=== PATIENT | male | born 1950 | race American Indian/Alaskan Native ===

== ENCOUNTER 2021-09-23 01:13 | Emergency (ER) | payer MEDICARE ==
[2021-09-23 01:21] VITALS: BP 204/80
== END 2021-09-23 02:00 | disposition left against medical advice (07) ==
LOC: ED 01:13
DX: R52 Pain, unspecified (principal); Z53.21 Procedure and treatment not carried out due to patient leaving prior to being seen by health care provider

== ENCOUNTER 2021-10-11 02:14 | Emergency (ER) | payer MEDICARE ==
[2021-10-11] MEDS ORDERED: ASPIRIN 325 MG TAB PO ONE (03:57)
--- NOTE | 2021-10-11 04:26 | XRay Report ---
CHEST 2 VIEWS INDICATION / CLINICAL INFORMATION: chestpain. COMPARISON: Chest x-ray 04/22/2018 FINDINGS: SUPPORT DEVICES: None. HEART / MEDIASTINUM: Heart size and mediastinal contour appear within normal limits. Mild ectasia of the thoracic aorta is stable. LUNGS / PLEURA: No significant pulmonary or pleural abnormality. No pneumothorax. BONES: No significant osseous abnormality. ADDITIONAL FINDINGS: No significant additional findings. IMPRESSION: 1. No active cardiopulmonary disease. Signer Name: Maximino Croft II, MD Signed: 10/11/2021 4:22 AM Workstation Name: [id number]
[2021-10-11] MEDS ORDERED: MORPHINE 4 MG/1 ML INJ IV ONE (05:01)
[2021-10-11 05:59] VITALS: BP 130/68
[2021-10-11] MEDS ORDERED: ONDANSETRON 4 MG/2 ML INJ IV ONE (06:18)
[2021-10-11] MEDS ORDERED: fentaNYL 100 MCG/2 ML INJ IV ONE (06:18)
--- NOTE | 2021-10-11 06:23 | Emergency Department Report ---
HPI - General Chief Complaint: Chest Pain Time Seen by Provider: 10/11/21 04:52 - HPI HPI: Room 7 Patient is a 71-year-old male present with chief complaint of body aches. Patient states for the past 3 days he has had pain throughout his "whole body." Patient states he has had this pain in the past from his pancreatic CA, and has it a couple times a month. The patient states he has prescription for extended release morphine and oxycodone but has not filled them yet. Patient denies any other complaints. Patient denies history of fever. Of note the patient was diagnosed with COVID recently and he has never been vaccinated ED Past Medical Hx - Past Medical History Previous Medical History?: Yes Hx Hypertension: Yes Hx Heart Attack/AMI: Yes (x3) Hx of Cancer: Yes (pancreatic) Additional medical history: Pancreatic Cancer, Liver Cancer (last treatment "an injection" occurred 2016). Denies chemo or radiation. Patient states he refused surgery - Surgical History Past Surgical History?: Yes Additional Surgical History: Left Knee surgery, Jaw surgery - Family History Family history: no significant - Social History Smoking Status: Current Every Day Smoker (1/2 pack/day) Substance Use Type: Alcohol (Occasional), Marijuana - Medications Home Medications: Home Medications Medication Instructions Recorded Confirmed Last Taken Type Albuterol Mdi (or & Nicu Only) 1 puff IH Q4-6H PRN #1 inha 04/22/18 Unknown Rx [ProAir HFA Inhaler] Amoxicillin 500 mg PO QID #40 capsule 04/22/18 Unknown Rx Benzonatate [Tessalon Perles] 100 mg PO Q8HR #20 capsule 04/22/18 Unknown Rx predniSONE [Deltasone] 20 mg PO QDAY #5 tab 04/22/18 Unknown Rx ED Review of Systems ROS: Stated complaint: CHEST PAIN/SHWETHA Other details as noted in HPI Constitutional: denies: fever Eyes: denies: eye pain ENT: denies: throat pain Respiratory: no symptoms reported Cardiovascular: denies: chest pain Endocrine: no symptoms reported Gastrointestinal: denies: abdominal pain Genitourinary: denies: dysuria Musculoskeletal: myalgia Neurological: denies: headache Physical Exam - Physical Exam Vital Signs: Vital Signs 10/11/21 10/11/21 10/11/21 02:15 05:42 05:46 Temperature 98 F Pulse Rate 88 68 Respiratory 18 12 Rate Blood Pressure 146/78 Blood Pressure [Left] O2 Sat by Pulse 100 99 100 Oximetry 10/11/21 05:57 Temperature 98.9 F Pulse Rate 68 Respiratory 19 Rate Blood Pressure Blood Pressure 130/68 [Left] O2 Sat by Pulse 100 Oximetry Physical Exam: GENERAL: The patient is well-developed well-nourished male lying on stretcher not appearing to be in acute distress. [] HEENT: Normocephalic. Atraumatic. Extraocular motions are intact. Patient has moist mucous membranes. NECK: Supple. Trachea midline CHEST/LUNGS: Clear to auscultation. There is no respiratory distress noted. HEART/CARDIOVASCULAR: Regular. There is no tachycardia. There is no gallop rub or murmur. ABDOMEN: Abdomen is soft, nontender. Patient has normal bowel sounds. There is no abdominal distention. SKIN: There is no rash. There is no edema. There is no diaphoresis. NEURO: The patient is awake, alert, and oriented. The patient is cooperative. The patient has no focal neurologic deficits. The patient has normal speech. GCS 15 MUSCULOSKELETAL: There is no evidence of acute injury. ED Course Vital Signs 10/11/21 10/11/21 10/11/21 02:15 05:42 05:46 Temperature 98 F Pulse Rate 88 68 Respiratory 18 12 Rate Blood Pressure 146/78 Blood Pressure [Left] O2 Sat by Pulse 100 99 100 Oximetry 10/11/21 05:57 Temperature 98.9 F Pulse Rate 68 Respiratory 19 Rate Blood Pressure Blood Pressure 130/68 [Left] O2 Sat by Pulse 100 Oximetry ED Medical Decision Making - Lab Data Result diagrams: 10/11/21 05:38 Laboratory Tests 10/11/21 05:38 Sodium 132 L Potassium 3.9 Chloride 102.5 Carbon Dioxide 16 L Anion Gap 17 BUN 15 Creatinine 0.8 Estimated GFR > 60 BUN/Creatinine Ratio 19 Glucose 151 H Calcium 9.2 Total Bilirubin 0.70 AST 49 H ALT 50 Alkaline Phosphatase 59 Troponin T < 0.010 Total Protein 8.3 H Albumin 3.6 L Albumin/Globulin Ratio 0.8 - EKG Data -: EKG Interpreted by Ri EKG shows normal: sinus rhythm Rate: normal - EKG Data When compared to previous EKG there are: no significant change Interpretation: unchanged when compared t (04/22/2018) - Radiology Data Radiology results: report reviewed (Chest x-ray), image reviewed (Chest x-ray) interpreted by me: Chest x-ray-no definite focal filtrates, no pneumothorax [facility] [address] [place] [address] XRay Report Signed Patient: REFUGIO BOND MR#: [id number] 003 : 1950 Acct:[id number] Age/Sex: 71 / M ADM Date: 10/11/21 Loc: ED Attending Dr: Ordering Physician: ED MD NANCY Date of Service: 10/11/21 Procedure(s): XR chest routine 2V Accession Number(s): [id number] cc: ED MD NANCY Fluoro Time In Minutes: CHEST 2 VIEWS INDICATION / CLINICAL INFORMATION: chestpain. COMPARISON: Chest x-ray 04/22/2018 FINDINGS: SUPPORT DEVICES: None. HEART / MEDIASTINUM: Heart size and mediastinal contour appear within normal limits. Mild ectasia of the thoracic aorta is stable. LUNGS / PLEURA: No significant pulmonary or pleural abnormality. No pneumothorax. BONES: No significant osseous abnormality. ADDITIONAL FINDINGS: No significant additional findings. IMPRESSION: 1. No active cardiopulmonary disease. Signer Name: Azar Croft II, MD Signed: 10/11/2021 4:22 AM Workstation Name: [id number] Transcribed By: BERYL Dictated By: AZAR CROFT II, MD Electronically Authenticated By: AZAR CROFT II, MD Signed Date/Time: 10/11/21421 DD/ 9 TD/TT: - Differential Diagnosis Body aches, COVID-19, secondary gain, myalgia Critical care attestation.: If time is entered above; I have spent that time in minutes in the direct care of this critically ill patient, excluding procedure time. ED Disposition Clinical Impression: Whole body pain Disposition: 07 LEFT AWOL/ELOPED Is pt being admited?: No Does the pt Need Aspirin: No Condition: Undetermined Referrals: DIAMOND GOMEZ MD [Referring] - 3-5 Days Time of Disposition: 08:16 (Patient eloped)
[2021-10-11 07:00] LABS: Alanine Aminotransferase 50 units/L (7-56); Albumin 3.6 g/dL (3.9-5); BUN/Creatinine Ratio 19; Blood Urea Nitrogen 15 mg/dL (9-20); Calcium 9.2 mg/dL (8.4-10.2); Hemolysis Index 50
--- NOTE | 2021-10-11 09:36 | Electrocardiograph Report ---
[facility] Test Date: 2021-10-11 Test Time: 05:16:37 Pat Name: REFUGIO BOND Department: Room: Gender: M Digital Project Coordinator: DENNIS : 1950 Requested By: LUISITO EDUARDO Order Number: [id number] Reading MD: Shaq Green Measurements Intervals [place] Rate: 64 P: 32 LA: 194 QRS: 88 QRSD: 102 T: 64 QT: 419 QTc: 431 Interpretive Statements Sinus rhythm nonspecific st-t No previous ECG available for comparison Electronically Signed On 10-11-2021 9:35:38 EDT by Shaq Green
== END 2021-10-11 07:59 | disposition left against medical advice (07) ==
LOC: ED 02:14
DX: M79.10 Myalgia, unspecified site (principal); I10 Essential (primary) hypertension; F17.200 Nicotine dependence, unspecified, uncomplicated
CPT/HCPCS: 36415; 71046; 80053; 84484; 93005; 96374; 96375; 99284; J2270; J2405; J3010

== ENCOUNTER 2021-12-03 02:54 | Emergency (ER) | payer MEDICARE ==
[2021-12-03 03:05] VITALS: BP 130/64
[2021-12-03] MEDS ORDERED: SODIUM CHLORIDE 0.9% 1000 ML 1,000 ML IV ONE (04:07)
--- NOTE | 2021-12-03 04:14 | Emergency Department Report ---
ED General Adult HPI - General Chief complaint: Alcohol Stated complaint: CHEST PAIN,BODY ACHES,DIARRHEA Time Seen by Provider: 12/03/21 03:49 Source: EMS Mode of arrival: Stretcher Limitations: No Limitations - History of Present Illness Initial comments: 71 yo M with history Pancreatic and Prostate CA who present now present with pain associated with epigastric and LUQ tenderness x the last couple of days. No fever or chills reported. No other modifying or associated factors reported. - Related Data Previous Rx's Medication Instructions Recorded Last Taken Type Albuterol Mdi (or & Nicu Only) 1 puff IH Q4-6H PRN #1 inha 04/22/18 Unknown Rx [ProAir HFA Inhaler] Amoxicillin 500 mg PO QID #40 capsule 04/22/18 Unknown Rx Benzonatate [Tessalon Perles] 100 mg PO Q8HR #20 capsule 04/22/18 Unknown Rx predniSONE [Deltasone] 20 mg PO QDAY #5 tab 04/22/18 Unknown Rx Allergies Allergy/AdvReac Type Severity Reaction Status Date / Time amlodipine besylate Allergy Anaphylaxis Verified 01/03/16 00:14 [From Norvasc] naproxen Allergy Anaphylaxis Verified 01/03/16 00:14 nitroglycerin Allergy Anaphylaxis Verified 03/24/18 21:39 tramadol HCl [From Ultra] Allergy Anaphylaxis Verified 01/03/16 00:13 aspirin AdvReac Unknown Verified 03/26/18 02:05 ED Review of Systems ROS: Stated complaint: CHEST PAIN,BODY ACHES,DIARRHEA Other details as noted in HPI Comment: All other systems reviewed and negative Cardiovascular: chest pain Gastrointestinal: abdominal pain, nausea ED Past Medical Hx - Past Medical History Previous Medical History?: Yes Hx Hypertension: Yes Hx Heart Attack/AMI: Yes (x3) Additional medical history: Pancreatic Cancer, Liver Cancer (last treatment "an injection" occurred 2017). Denies chemo or radiation. Patient states he refused surgery - Surgical History Past Surgical History?: Yes Additional Surgical History: Left Knee surgery, Jaw surgery - Social History Smoking Status: Current Every Day Smoker Substance Use Type: Alcohol - Medications Home Medications: Home Medications Medication Instructions Recorded Confirmed Last Taken Type Albuterol Mdi (or & Nicu Only) 1 puff IH Q4-6H PRN #1 inha 04/22/18 Unknown Rx [ProAir HFA Inhaler] Amoxicillin 500 mg PO QID #40 capsule 04/22/18 Unknown Rx Benzonatate [Tessalon Perles] 100 mg PO Q8HR #20 capsule 04/22/18 Unknown Rx predniSONE [Deltasone] 20 mg PO QDAY #5 tab 04/22/18 Unknown Rx ED Physical Exam - General Limitations: No Limitations General appearance: alert, in no apparent distress - Head Head exam: Present: normal inspection - Eye Eye exam: Present: normal appearance Pupils: Present: normal accommodation - ENT ENT exam: Present: normal exam, normal orophraynx, mucous membranes dry - Neck Neck exam: Present: normal inspection. Absent: tenderness, full ROM - Respiratory Respiratory exam: Present: normal lung sounds bilaterally. Absent: respiratory distress, accessory muscle use - Cardiovascular Cardiovascular Exam: Present: regular rate, normal rhythm, normal heart sounds - GI/Abdominal GI/Abdominal exam: Present: soft, distended, tenderness (epigastric and LUQ tenderness ) - Extremities Exam Extremities exam: Present: normal inspection, normal capillary refill, pedal edema (+1 pitting edema ) - Back Exam Back exam: Absent: tenderness - Neurological Exam Neurological exam: Present: alert, oriented X3 - Psychiatric Psychiatric exam: Present: normal affect, normal mood - Skin Skin exam: Present: warm, normal color ED Course Vital Signs 12/03/21 03:01 Temperature 98.4 F Pulse Rate 74 Respiratory 18 Rate Blood Pressure 130/64 O2 Sat by Pulse 98 Oximetry ED Medical Decision Making - Medical Decision Making Here with chest pain and noted with epigastric and --differential could be but not limited to myocardial infarction, pulmonary embolism, costochondritis, anxiety, gastritis, GERD, pancreatitis, and or pyelonephritis--in order to rule out the above-- so will go ahead and order routine cardiopulmonary work-up that include troponin, EKG, chest x-ray, BNP, CKMB, and CBC, CMP and urinalysis for any correctable infectious process or electrolyte abnormality as a cause. In the meantime will start pain medication and ivf ns 1L bolus while waiting for the above labs Critical care attestation.: If time is entered above; I have spent that time in minutes in the direct care of this critically ill patient, excluding procedure time. ED Disposition Clinical Impression: Chest pain Qualifiers: Chest pain type: unspecified Qualified Code(s): R07.9 - Chest pain, unspecified Abdominal pain Qualifiers: Abdominal location: left upper quadrant Qualified Code(s): R10.12 - Left upper quadrant pain Disposition: 07 LEFT AGAINST MEDICAL ADVICE Is pt being admited?: No Does the pt Need Aspirin: No Condition: Stable Instructions: Nonspecific Chest Pain, Adult Referrals: CLAUDIA ESCUDERO MD [Primary Care Provider] - 3-5 Days
[2021-12-03] MEDS ORDERED: fentaNYL 100 MCG/2 ML INJ IV ONE (05:48)
[2021-12-03] MEDS ORDERED: ONDANSETRON 4 MG/2 ML INJ IV ONE (05:49)
== END 2021-12-03 05:53 | disposition left against medical advice (07) ==
LOC: ED 02:54
DX: R07.9 Chest pain, unspecified (principal); R10.12 Left upper quadrant pain; F17.200 Nicotine dependence, unspecified, uncomplicated; F10.20 Alcohol dependence, uncomplicated; I10 Essential (primary) hypertension; Z88.8 Allergy status to other drugs, medicaments and biological substances; Z88.6 Allergy status to analgesic agent
CPT/HCPCS: 93005; 99283